=== PATIENT | male | born 1985 | race Two or more races ===

== ENCOUNTER 2024-02-16 12:09 | Emergency (ER) | payer SELFPAY ==
[2024-02-16 13:10] LABS: CORONAVIRUS COVID-19 NAA POSITIVE (NEGATIVE); INFLUENZA A NAA NEGATIVE (NEGATIVE); INFLUENZA B NAA NEGATIVE (NEGATIVE)
== END 2024-02-16 13:46 | disposition home or self-care (01) ==
LOC: MW.ED 12:09
DX: U07.1 COVID-19 (principal)
CPT/HCPCS: 0240U; 99284; 99282

== ENCOUNTER 2024-09-08 01:19 | Emergency (ER) | payer SELFPAY ==
[2024-09-08] MEDS: Ketorolac 30 MG/ML SDV IM ONE (01:43)
[2024-09-08] MEDS: Acetaminophen 325 MG Tab PO ONE (01:43)
== END 2024-09-08 04:10 | disposition home or self-care (01) ==
LOC: MW.ED 01:19
DX: M79.601 Pain in right arm (principal)
CPT/HCPCS: 93971; 96372; 99284; A9270; J1885; 99283